=== PATIENT | female | born 1950 ===

== ENCOUNTER 2017-09-03 22:10 | Emergency (ER) | payer MEDICAID ==
[2017-09-03 22:41] VITALS: O2SAT 99
--- NOTE | 2017-09-03 23:23 | C.PDOC ---
History Of Present Illness 66 year old female with a history of arthritis and gastritis presents to the ED with complaints of dizziness, joint pain, shaking, and cold hands beginning yesterday and worsening prior to arrival. She denies fever, vomiting, sore throat, abdominal pain, or diarrhea. Time Seen by Provider: 09/03/17 23:11 Chief Complaint (Nursing): Medical Clearance History Per: Patient History/Exam Limitations: no limitations Onset/Duration Of Symptoms: Days (1 day ), Worse Since (prior to arrival ) Current Symptoms Are (Timing): Still Present Recent travel outside of the [place]: No Additional History Per: Family ( ) Past Medical History Reviewed: Historical Data, Nursing Documentation, Vital Signs Vital Signs: Last Vital Signs Temp 97.2 F L 09/04/17 00:45 Pulse 71 09/04/17 00:45 Resp 18 09/04/17 00:45 BP 146/80 09/04/17 00:45 Pulse Ox 99 09/04/17 00:50 - Medical History PMH: HTN, Osteoporosis Surgical History: Appendectomy Family History: States: Unknown Family Hx - Social History Hx Tobacco Use: No Hx Alcohol Use: No Hx Substance Use: No - Immunization History Hx Tetanus Toxoid Vaccination: No Hx Influenza Vaccination: No Hx Pneumococcal Vaccination: No Review Of Systems Constitutional: Positive for: Other (joint pain, shaking, and cold hands ). Negative for: Fever, Chills Cardiovascular: Negative for: Chest Pain, Palpitations Respiratory: Negative for: Cough, Shortness of Breath Gastrointestinal: Negative for: Nausea, Vomiting, Abdominal Pain, Diarrhea Neurological: Positive for: Dizziness Physical Exam - Physical Exam Appears: Non-toxic, No Acute Distress Skin: Warm, Dry Head: Atraumatic, Normacephalic Eye(s): bilateral: Normal Inspection, PERRL, EOMI Ear(s): Bilateral: Normal Oral Mucosa: Moist Throat: Normal, No Erythema, No Exudate Neck: Supple Chest: Symmetrical, No Deformity Cardiovascular: Rhythm Regular (S1 and S2 within normal limits ), No Murmur Respiratory: No Rales, No Rhonchi, No Wheezing, Other (clear to auscultation bilaterally ) Gastrointestinal/Abdominal: Bowel Sounds (active bowel sounds ), Soft, No Tenderness, No Distention, No Guarding, No Rebound Extremity: Normal ROM, No Tenderness, No Pedal Edema, No Calf Tenderness, No Deformity, No Swelling, Other (no edema, clubbing, or cynaosis ) Pulses: Left Dorsalis Pedis: Normal (2+), Right Dorsalis Pedis: Normal (2+) Neurological/Psych: Oriented x3 ED Course And Treatment O2 Sat by Pulse Oximetry: 99 (RA) - Radiology CXR: Interpreted by Me, Viewed By Me CXR Interpretation: Yes: No Acute Disease (lung ron and cardiac silhouette within normal limits ) Nexus Criteria: . Negative Medical Decision Making Medical Decision Making: Pt with gen arthralgias,dlightheadedness,chills.Will tx for viral syndrome Disposition - Disposition Referrals: [facility] [Outside] Disposition: HOME/ ROUTINE Disposition Time: 00:59 Condition: GOOD Forms: [facility] (Bruneian), Gen Discharge Inst Urdu - Clinical Impression Clinical Impression: Viral syndrome - Scribe Statement The provider has reviewed the documentation as recorded by the Scribe Kelley Griggs All medical record entries made by the Scribe were at my direction and personally dictated by me. I have reviewed the chart and agree that the record accurately reflects my personal performance of the history, physical exam, medical decision making, and the department course for this patient. I have also personally directed, reviewed, and agree with the discharge instructions and disposition.
[2017-09-04 02:08] VITALS: BP 135/76; PULSE 78; RESP 16; TEMP 98
--- NOTE | 2017-09-04 08:19 | RAD ---
HISTORY: flu like sx COMPARISON: No prior. TECHNIQUE: Chest PA and lateral FINDINGS: LUNGS: No active pulmonary disease. PLEURA: No significant pleural effusion identified. No pneumothorax apparent. CARDIOVASCULAR: Normal. OSSEOUS STRUCTURES: Multilevel thoracic spondylosis is appreciated. VISUALIZED UPPER ABDOMEN: Normal. OTHER FINDINGS: None. IMPRESSION: No acute cardiopulmonary disease appreciated.
== END 2017-09-04 02:08 | disposition home or self-care (01) ==
LOC: C.ER 22:10
DX: B34.9 Viral infection, unspecified (principal)